=== PATIENT | male | born 1925 | race Caucasian/White ===

== ENCOUNTER 2017-04-01 10:28 | Outpatient (CLI) | payer MEDICARE, OTHER ==
--- NOTE | 2017-04-01 15:50 | CT ---
NONCONTRAST HEAD CT: HISTORY: Status post bleed and fall. Dizziness. COMPARISON: None. TECHNIQUE: A noncontrast head CT is performed from the skull base to the skull vertex. FINDINGS: There is slight degradation due to motion. No parenchymal hemorrhage. No extraaxial hematoma. No midline shift. Basilar cisterns are patent. Age appropriate brain volume. Cortical avina white matter differentiation is preserved. Ventricle s and sulci are patent and symmetric. Chronic small vessel ischemic change of the white matter is noted. The calvarium is intact. Adequate aeration of the sinuses and mastoid air cells. IMPRESSION: 1. No acute intracranial process. 2. Age appropriate atrophy. 3. Chronic small vessel ischemic changes of the white matter. POS: [facility]
== END 2017-04-01 10:29 | disposition home or self-care (01) ==
LOC: TBSIIMAG 10:28
PROVIDERS: ATTEND Neurological Surgery
DX: S06.5X9A Traumatic subdural hemorrhage with loss of consciousness of unspecified duration, initial encounter (principal); I67.82 Cerebral ischemia
CPT/HCPCS: 70450